=== PATIENT | female | born 1975 | race Caucasian/White ===

== ENCOUNTER 2017-09-20 09:51 | Day surgery (SDC) | payer OTHER ==
[~2017-09-20 09:51] MED LIST: Lactated Ringers 1,000 ML IV SCH; Midazolam 1 MG/ML 2 ML SDV ONE; Propofol 200 MG/20 ML SDV ONE; fentaNYL 100 MCG/2 ML SDV ONE
--- NOTE | 2017-09-20 10:30 | PCM.PREANE ---
Preanesthetic Assessment - Anesthesia/Transfusion/Family Hx Anesthesia History: Prior Anesthesia Without Reaction Family History of Anesthesia Reaction: No Transfusion History: No Prior Transfusion(s) Intubation History: Unknown - Review of Systems General: No Symptoms Pulmonary: No Symptoms Cardiovascular: No Symptoms Gastrointestinal: Abdominal Pain Neurological: No Symptoms Other: Reports: None - Physical Assessment Height: 1.57 m Weight: 83.915 kg ASA Class: 2 Mental Status: Alert & Oriented x3 Airway Class: Mallampati = 2 Dentition: Reports: Normal Dentition Thyro-Mental Finger Breadths: 3 Mouth Opening Finger Breadths: 2 ROM/Head Extension: Full Lungs: Clear to Auscultation, Normal Respiratory Effort Cardiovascular: Regular Rate, Regular Rhythm - Lab Values: Laboratory Last Values Urine HCG, Qual NEGATIVE (NEGATIVE) 09/20/17 09:58 - Allergies Allergies/Adverse Reactions: Allergies Allergy/AdvReac Type Severity Reaction Status Date / Time indomethacin [From Indocin] Allergy Edema Verified 09/15/17 08:32 meloxicam [From Mobic] Allergy Edema Verified 09/15/17 08:32 - Blood Blood Available: No - Anesthesia Plan Pre-Op Medication Ordered: None - Acknowledgements Anesthesia Type Planned: MAC Pt an Appropriate Candidate for the Planned Anesthesia: Yes Alternatives and Risks of Anesthesia Discussed w Pt/Guardian: Yes Pt/Guardian Understands and Agrees with Anesthesia Plan: Yes PreAnesthesia Questionnaire HEENT History: Reports: Allergic Rhinitis Gastrointestinal History: Reports: GERD, Other (See Below) Other Gastrointestinal History: intermittent lt upper quad pain 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: Musculoskeletal History: Reports: Arthritis, Back Pain, Chronic Neurological History: Reports: Migraines Endocrine/Metabolic History: Reports: Obesity/BMI 30+ - Past Surgical History Head Surgeries/Procedures: Reports: None HEENT Surgical History: Reports: Naso-Sinus Surgery Other HEENT Surgeries/Procedures: sinus surgery x4 GI Surgical History: Reports: Appendectomy - SUBSTANCE USE Smoking Status *Q: Never Smoker Recreational Drug Use History: No - HOME MEDS Home Medications: Home Meds Calcium Carbonate [Tums] 1 tab.chew CHEW ASDIRECTED PRN 09/15/17 [History] Pantoprazole Sodium 40 mg PO DAILY 09/15/17 [History] - CURRENT (IN HOUSE) MEDS Current Meds: Current Medications Lactated Ringer's (Ringers, Lactated) 1,000 mls @ 125 mls/hr IV ASDIRECTED ADRY Discontinued Medications Fentanyl (Sublimaze) Confirm Administered Dose 100 mcg .ROUTE .STK-MED ONE Stop: 09/20/17 08:10 Midazolam HCl (Versed 1 Mg/Ml) Confirm Administered Dose 2 mg .ROUTE .STK-MED ONE Stop: 09/20/17 08:10 Propofol (Diprivan 20 Ml) Confirm Administered Dose 200 mg .ROUTE .STK-MED ONE Stop: 09/20/17 08:10
--- NOTE | 2017-09-20 11:10 | PCM.OPNOTE ---
- General Post-Op/Procedure Note Date of Surgery/Procedure: 09/20/17 Operative Procedure(s): EGD w/ biopsy Pre Op Diagnosis: Epigastric pain. Spicy food intolerance Post-Op Diagnosis: Acute gastritis w/ superficial ulcerations. Anesthesia Technique: MAC (ASA II) Primary Surgeon: Santiago Olsen Condition: Good Free Text/Narrative:: Dictation [id number] CPT CODE 91358
[2017-09-20] MEDS ORDERED: Lactated Ringers 1,000 ML IV SCH (11:15)
--- NOTE | 2017-09-21 08:23 | OR ---
SURGEON: Santiago Olsen M.D. DATE OF PROCEDURE: 09/20/2017 OPERATION PERFORMED: Esophagogastroduodenoscopy with biopsy. ANESTHESIA: MAC. ASA CLASSIFICATION: II. PREOPERATIVE DIAGNOSIS: Persistent left upper quadrant pain. POSTOPERATIVE DIAGNOSIS: Multiple superficial small gastric ulcers. DESCRIPTION OF PROCEDURE: The patient was taken to the endoscopy room and positioned on the endoscopy table in the supine position. Time-out was called for appropriate identification of patient and procedure. Monitored anesthesia care was provided. The bite block was placed between the patient's teeth. The gastroscope was inserted through the bite block into the oropharynx and advanced without difficulty through the esophagus and stomach into the duodenum, where examination was carried out in a retrograde fashion. The duodenum shows no acute inflammatory changes or ulcerations. The stomach does show multiple superficial gastric ulcers. No deep craters are noted. No acute bleeding is noted. Antral biopsies were obtained to look for the presence of Helicobacter pylori. The gastroscope was then retroflexed to visualize the proximal stomach. No lesions were noted proximally, and there was no evidence of a hiatal hernia. The gastroscope was then straightened and slowly withdrawn aspirating the stomach as the scope was withdrawn. The GE junction was well defined and shows no acute inflammatory changes or ulcerations. The esophagus demonstrated good contractility. No mid or proximal lesions were identified. The vocal cords were visualized as the scope was withdrawn and noted to move symmetrically. The gastroscope was then removed with the patient having tolerated the procedure well. She was taken to recovery room in stable condition. MEMO / SELINA /[id number]
== END 2017-09-20 11:45 | disposition home or self-care (01) ==
LOC: MW.SDS 09:51
PROVIDERS: ATTEND Surgery
DX: K29.50 Unspecified chronic gastritis without bleeding (principal); K25.9 Gastric ulcer, unspecified as acute or chronic, without hemorrhage or perforation; K21.9 Gastro-esophageal reflux disease without esophagitis; G43.909 Migraine, unspecified, not intractable, without status migrainosus; E66.9 Obesity, unspecified; Z68.33 Body mass index [BMI] 33.0-33.9, adult; Z88.6 Allergy status to analgesic agent; Z79.899 Other long term (current) drug therapy; Z80.3 Family history of malignant neoplasm of breast; Z82.49 Family history of ischemic heart disease and other diseases of the circulatory system; Z83.3 Family history of diabetes mellitus; Z90.49 Acquired absence of other specified parts of digestive tract; Z98.890 Other specified postprocedural states
CPT/HCPCS: 43239; 81025; J2250; J3010; J7120; 00731; 88305; 88312; J2704

== ENCOUNTER 2017-11-05 07:37 | Day surgery (SDC) | payer OTHER ==
[~2017-11-05 07:37] MED LIST changes: +Bupivacaine 0.5% 10 ML SDV ONE; -Midazolam 1 MG/ML 2 ML SDV ONE; -Propofol 200 MG/20 ML SDV ONE; +ceFAZolin 1 GM Vial ONE; +cefOXitin 2 GM in Premix Bag 1 BAG IV ONE; -fentaNYL 100 MCG/2 ML SDV ONE
[2017-11-05] MEDS ORDERED: Scopolamine 1.5 MG Transdermal Patch TRDERM PRN (08:13)
--- NOTE | 2017-11-05 08:21 | PCM.PREANE ---
Preanesthetic Assessment - Anesthesia/Transfusion/Family Hx Anesthesia History: Prior Anesthesia Without Reaction Family History of Anesthesia Reaction: No Transfusion History: No Prior Transfusion(s) Intubation History: Unknown - Review of Systems General: No Symptoms Pulmonary: No Symptoms Cardiovascular: No Symptoms Gastrointestinal: Abdominal Pain Neurological: No Symptoms Other: Reports: None - Physical Assessment Height: 1.57 m Weight: 84.822 kg ASA Class: 2 Mental Status: Alert & Oriented x3 Airway Class: Mallampati = 2 Dentition: Reports: Normal Dentition Thyro-Mental Finger Breadths: 2 Mouth Opening Finger Breadths: 3 ROM/Head Extension: Full Lungs: Clear to Auscultation, Normal Respiratory Effort Cardiovascular: Regular Rate, Regular Rhythm - Lab Values: Laboratory Last Values Urine HCG, Qual NEGATIVE (NEGATIVE) 11/05/17 07:50 - Allergies Allergies/Adverse Reactions: Allergies Allergy/AdvReac Type Severity Reaction Status Date / Time indomethacin [From Indocin] Allergy Edema Verified 11/02/17 09:56 meloxicam [From Mobic] Allergy Edema Verified 11/02/17 09:56 - Blood Blood Available: No - Anesthesia Plan Pre-Op Medication Ordered: None - Acknowledgements Anesthesia Type Planned: General Anesthesia Pt an Appropriate Candidate for the Planned Anesthesia: Yes Alternatives and Risks of Anesthesia Discussed w Pt/Guardian: Yes Pt/Guardian Understands and Agrees with Anesthesia Plan: Yes PreAnesthesia Questionnaire HEENT History: Reports: Allergic Rhinitis Respiratory History: Reports: None Gastrointestinal History: Reports: Gastritis, GERD, Other (See Below) Other Gastrointestinal History: intermittent lt upper quad pain 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: Musculoskeletal History: Reports: Osteoarthritis Neurological History: Reports: None Endocrine/Metabolic History: Reports: Obesity/BMI 30+ - Past Surgical History Head Surgeries/Procedures: Reports: None HEENT Surgical History: Reports: Naso-Sinus Surgery Other HEENT Surgeries/Procedures: sinus surgery x4 GI Surgical History: Reports: Appendectomy, EGD - SUBSTANCE USE Smoking Status *Q: Never Smoker Recreational Drug Use History: No - HOME MEDS Home Medications: Home Meds Calcium Carbonate [Tums] 1 tab.chew CHEW ASDIRECTED PRN 09/15/17 [History] - CURRENT (IN HOUSE) MEDS Current Meds: Current Medications Lactated Ringer's (Ringers, Lactated) 1,000 mls @ 125 mls/hr IV ASDIRECTED ADRY Scopolamine (Transderm-Scop) 1.5 mg TRDERM Q72H PRN PRN Reason: Nausea Discontinued Medications Bupivacaine HCl (Sensorcaine-Mpf 0.5%) Confirm Administered Dose 30 ml .ROUTE .STK-MED ONE Stop: 11/05/17 07:23 Cefazolin Sodium (Ancef) Confirm Administered Dose 1 gm .ROUTE .STK-MED ONE Stop: 11/05/17 07:23 Cefoxitin Sodium 2 gm/ Premix 50 mls @ 100 mls/hr IV ONETIME ONE Stop: 11/05/17 07:29
[2017-11-05] MEDS ORDERED: Lidocaine 2% 5 ML SDV ONE (08:52)
[2017-11-05] MEDS ORDERED: Propofol 200 MG/20 ML SDV ONE (08:53)
[2017-11-05] MEDS ORDERED: Midazolam 1 MG/ML 2 ML SDV ONE (08:53)
[2017-11-05] MEDS ORDERED: fentaNYL 100 MCG/2 ML SDV ONE (08:53)
[2017-11-05] MEDS ORDERED: Ondansetron 4 MG/2 ML SDV ONE (08:54)
[2017-11-05] MEDS ORDERED: Glycopyrrolate 0.2 MG/ML SDV ONE (08:54)
[2017-11-05] MEDS ORDERED: Neostigmine Methylsulfate 1 MG/ML 5 ML Syringe ONE (08:54)
[2017-11-05] MEDS ORDERED: Ketorolac 30 MG/ML SDV ONE (08:54)
[2017-11-05] MEDS ORDERED: Rocuronium 10 MG/ML 10 ML Syringe ONE (08:54)
[2017-11-05] MEDS ORDERED: Meperidine PF 25 MG/ML Syringe ONE (08:55)
[2017-11-05] MEDS ORDERED: fentaNYL 100 MCG/2 ML SDV IVPUSH PRN (09:46)
[2017-11-05] MEDS ORDERED: HYDROmorphone 2 MG/ML Syringe IVPUSH ONE (09:46)
[2017-11-05] MEDS ORDERED: Acetaminophen/HYDROcodone 325-5 MG Tab PO PRN (10:26)
[2017-11-05] MEDS ORDERED: Morphine 10 MG/ML Syringe IVPUSH PRN (10:26)
--- NOTE | 2017-11-05 10:29 | PCM.OPNOTE ---
- General Post-Op/Procedure Note Date of Surgery/Procedure: 11/05/17 Operative Procedure(s): Laparoscopic cholecystectomy Pre Op Diagnosis: Chronic right upper quadrant pain with abnormal hepatobiliary scan Post-Op Diagnosis: Chronic cholecystitis Anesthesia Technique: General ET Tube (ASA II) Primary Surgeon: Santiago Olsen Fluid Replacement, Intraop: 1,300 EBL in mLs: 10 Condition: Good Free Text/Narrative:: Dictation CPT CODE [id number]
[2017-11-05] MEDS ORDERED: Lactated Ringers 1,000 ML IV SCH (10:30)
[2017-11-05] MEDS: fentaNYL 100 MCG/2 ML SDV IVPUSH PRN ×4 (10:48→11:12)
--- NOTE | 2017-11-05 11:14 | PCM.POSTAN ---
POST ANESTHESIA ASSESSMENT - MENTAL STATUS Mental Status: Alert, Oriented - RESPIRATORY Respiratory Status: Respiratory Rate WNL, Airway Patent, O2 Saturation Stable - CARDIOVASCULAR CV Status: Pulse Rate WNL, Blood Pressure Stable - GASTROINTESTINAL GI Status: No Symptoms - PAIN Pain Score: 6 - POST OP HYDRATION Hydration Status: Adequate & Stable - OBSERVATIONS Free Text/Narrative:: no anesthesia problems
[2017-11-05] MEDS ORDERED: Acetaminophen 1,000 MG in Premix Bag 1 BAG IV ONE (11:37)
[2017-11-05] MEDS ORDERED: Ketorolac 15 MG/ML SDV IVPUSH PRN (12:30)
--- NOTE | 2017-11-05 13:28 | PCM48HPAN ---
Post Anesthesia Note - EVALUATION WITHIN 48HRS OF ANESTHETIC Vital Signs in Normal Range: Yes Patient Participated in Evaluation: Yes Respiratory Function Stable: Yes Airway Patent: Yes Cardiovascular Function Stable: Yes Hydration Status Stable: Yes Pain Control Satisfactory: Yes Nausea and Vomiting Control Satisfactory: Yes Mental Status Recovered: Yes Resp Rate: 11 - COMMENTS/OBSERVATIONS Free Text/Narrative:: no anesthesia problems
--- NOTE | 2017-11-08 06:23 | OR ---
SURGEON: Santiago Olsen M.D. DATE OF PROCEDURE: 11/05/2017 OPERATION PERFORMED: Laparoscopic cholecystectomy. ANESTHESIA: General endotracheal. ASA CLASSIFICATION: II. PREOPERATIVE DIAGNOSES: 1. Chronic right upper quadrant pain. 2. Abnormal hepatobiliary scan. POSTOPERATIVE DIAGNOSES: 1. Chronic right upper quadrant pain. 2. Abnormal hepatobiliary scan. ESTIMATED BLOOD LOSS: 10 mL. INTRAOPERATIVE FLUID REPLACEMENT: 1300 mL of crystalloid. DESCRIPTION OF PROCEDURE: The patient was taken to the operating room and placed on the operating table in the supine position. Time-out was called for appropriate identification of the patient and procedure. Thigh-high TEDs and sequential compression boots were placed. Following satisfactory attainment of general endotracheal anesthesia, a Clay catheter was placed in the patient's urinary bladder. The abdomen was then prepped with DuraPrep solution and sterile drapes were applied. The skin just under the umbilicus was infiltrated with 0.5% Marcaine solution. The skin incision was made and deepened through the subcutaneous tissue obtaining hemostasis with the use of electrocautery. Veress needle was introduced into the peritoneal cavity. Saline drop test was positive. Carbon dioxide pneumoperitoneum was established with the relief set at 13 cm of water. Once we had a satisfactory pneumoperitoneum, 5 mm camera and port were placed through the infraumbilical incision. The patient was now positioned with her feet down and rolled to the left. Under camera vision, 12 mm subxiphoid, 5 mm midclavicular, and 5 mm anterior axillary ports were placed. Each incision was preemptively infiltrated with 0.5% Marcaine solution. The gallbladder was grasped, adhesions were taken down, and the cholecystohepatic triangle was dissected free obtaining a good critical view of both the cystic duct and cystic artery. These structures were serially hemoclipped and divided with the laparoscopic Metzenbaum scissor. Once that was accomplished, the gallbladder was dissected away from its bed using electrocautery. Once the gallbladder was amputated, this was placed in an Endopouch. There was minimal oozing from the bed of the gallbladder and no bile was noted. Surgicel and Avitene were placed into the bed of the gallbladder. After irrigating the right upper quadrant, all fluid was aspirated. The right hemidiaphragm was then irrigated with 500 mL of saline containing 20 mL of 0.5% Marcaine solution, that fluid was left in place. The gallbladder, which had been placed in a retrieval pouch was now retrieved through the subxiphoid incision removing that port at the same time. Under camera vision, the 5 mm midclavicular and anterior axillary ports were removed, and finally the infraumbilical camera and port were removed. The wounds were inspected for hemostasis, and all bleeding sites were electrocoagulated. The subxiphoid and infraumbilical incisions were closed in 2 layers approximating the subcutaneous tissue with 3-0 Vicryl and the skin with subcuticular 4-0 Monocryl. The midclavicular and anterior axillary incisions were closed with subcuticular 4-0 Monocryl. All incisions were Steri-Stripped and dressed with sterile Tegaderm pads. Sponge, needle, and instrument counts were all correct. The patient tolerated the procedure well. The Clay catheter was removed prior to emergence from anesthesia. Following emergence from anesthesia and extubation, the patient was taken to recovery room in stable condition. MEMO MARKS /[id number]
== END 2017-11-05 13:50 | disposition home or self-care (01) ==
LOC: MW.SDS 07:37
PROVIDERS: ATTEND Surgery
DX: K81.1 Chronic cholecystitis (principal); E66.9 Obesity, unspecified; Z88.1 Allergy status to other antibiotic agents; Z88.8 Allergy status to other drugs, medicaments and biological substances; Z68.35 Body mass index [BMI] 35.0-35.9, adult; Z79.899 Other long term (current) drug therapy
CPT/HCPCS: 47562; 81025; A9270; J1885; J2250; J2405; J3010; 00790; 88304; J0690; J2175; J2704

== ENCOUNTER 2018-01-01 21:40 | Emergency (ER) | payer OTHER ==
--- NOTE | 2018-01-01 21:54 | EDM.PDOC ---
ED HPI GENERAL MEDICAL PROBLEM - General Chief Complaint: Lower Extremity Injury/Pain Stated Complaint: PAIN RT FOOT Time Seen by Provider: 01/01/18 21:53 Source of Information: Reports: Patient - History of Present Illness INITIAL COMMENTS - FREE TEXT/NARRATIVE: HISTORY AND PHYSICAL: History of present illness: [Patient rolled her right ankle while stepping off a curb just prior to arrival rates pain 8 out of 10 with ambulation no pain at rest No fever nausea vomiting chills sweats no other injury described ] Review of systems: As per history of present illness and below otherwise all systems reviewed and negative. Past medical history: As per history of present illness and as reviewed below otherwise noncontributory. Surgical history: As per history of present illness and as reviewed below otherwise noncontributory. Social history: No reported history of drug or alcohol abuse. Family history: As per history of present illness and as reviewed below otherwise noncontributory. Physical exam: HEENT: Atraumatic, normocephalic, pupils reactive, negative for conjunctival pallor or scleral icterus, mucous membranes moist, throat clear, neck supple, nontender, trachea midline. Lungs: Clear to auscultation, breath sounds equal bilaterally, chest nontender. Heart: S1S2, regular, negative for clicks, rubs, or JVD. Abdomen: Soft, nondistended, nontender. Negative for masses or hepatosplenomegaly. Negative for costovertebral tenderness. Pelvis: Stable nontender. Genitourinary: Deferred. Rectal: Deferred. Extremities: Atraumatic, negative for cords or calf pain. Neurovascular unremarkable. Right lower extremity hip and knee unaffected ankle is tender and swollen over lateral malleolus unable to bear weight due to pain entire limb is neurovascularly intact no open lesion or bruising Neuro: Awake, alert, oriented. Cranial nerves II through XII unremarkable. Cerebellum unremarkable. Motor and sensory unremarkable throughout. Exam nonfocal. Diagnostics: [3 views right ankle ] Therapeutics: [Rest ice ibuprofen ]Stuhr brace CrutchesNonweightbearing Impression: [ right ankle injury ] Definitive disposition and diagnosis as appropriate pending reevaluation and review of above. 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: Musculoskeletal History: Reports: Osteoarthritis Neurological History: Reports: None Endocrine/Metabolic History: Reports: Obesity/BMI 30+ - Past Surgical History Head Surgeries/Procedures: Reports: None HEENT Surgical History: Reports: Naso-Sinus Surgery Other HEENT Surgeries/Procedures: sinus surgery x4 GI Surgical History: Reports: Appendectomy, EGD Review of Systems - Review of Systems Review Of Systems: See Below ED EXAM, GENERAL - Physical Exam Exam: See Below Course - Vital Signs Last Recorded V/S: Last Vital Signs Temp 98 F 01/01/18 21:51 Pulse 104 H 01/01/18 21:51 Resp 18 01/01/18 21:51 BP 152/93 H 01/01/18 21:51 Pulse Ox 98 01/01/18 21:51 - Orders/Labs/Meds Orders: Active Orders 24 hr Category Date Time Status Ankle Min 3V Rt [CR] Stat Exams 01/01/18 21:52 Taken Departure - Departure Time of Disposition: 22:31 Disposition: Home, Self-Care 01 Condition: Good Clinical Impression: Right ankle injury - Discharge Information Referrals: PCP,None [Primary Care Provider] - Forms: ED Department Discharge Additional Instructions: Rest Elevation wall at rest Ice 20 minute intervals 3 times daily as needed Crutches nonweightbearing Follow-up with orthopedist, call phone number below to schedule appropriate follow-up [facility] [address], [facility] [address] [place] [address] my orthopedic The following information is given to patients seen in the emergency department who are being discharged to home. This information is to outline your options for follow-up care. We provide all patients seen in our emergency department with a follow-up referral. The need for follow-up, as well as the timing and circumstances, are variable depending upon the specifics of your emergency department visit. If you don't have a primary care physician on staff, we will provide you with a referral. We always advise you to contact your personal physician following an emergency department visit to inform them of the circumstance of the visit and for follow-up with them and/or the need for any referrals to a consulting specialist. The emergency department will also refer you to a specialist when appropriate. This referral assures that you have the opportunity for follow-up care with a specialist. All of these measure are taken in an effort to provide you with optimal care, which includes your follow-up. Under all circumstances we always encourage you to contact your private physician who remains a resource for coordinating your care. When calling for follow-up care, please make the office aware that this follow-up is from your recent emergency room visit. If for any reason you are refused follow-up, please contact the [facility] emergency department at and asked to speak to the emergency department charge nurse. - My Orders Last 24 Hours: My Active Orders 01/01/18 21:52 Ankle Min 3V Rt [CR] Stat - Assessment/Plan Last 24 Hours: My Active Orders 01/01/18 21:52 Ankle Min 3V Rt [CR] Stat
--- NOTE | 2018-01-04 10:11 | CR ---
EXAM DATE: 01/01/18 PATIENT'S AGE: 42 Patient: OREN MALONE Facility: [place], [place] Site . Site : [id number] Study: XRay Extremity Right ankle [id number]/26/2018 10:12:55 PM Ordering Physician: Rachel Ortiz Final Report: Fell Three-views of the right ankle Findings: Lateral soft tissue swelling. Normal alignment. No acute fracture. Talar dome is intact. Ankle mortise appears preserved. IMPRESSION: 1. No acute fracture. Dictated by Mcai Grissom MD @ Jan 01 2018 10:57PM (Electronic Signature) Report Signed by Proxy. TOMAS
== END 2018-01-01 22:53 | disposition home or self-care (01) ==
LOC: MW.ED 21:40
DX: S99.911A Unspecified injury of right ankle, initial encounter (principal); K21.9 Gastro-esophageal reflux disease without esophagitis; E66.9 Obesity, unspecified; W10.1XXA Fall (on)(from) sidewalk curb, initial encounter; Z88.8 Allergy status to other drugs, medicaments and biological substances; Z68.34 Body mass index [BMI] 34.0-34.9, adult
CPT/HCPCS: 73610-26-RT; 73610-RT; 99282; 99283